=== PATIENT | male | born 1950 | race Caucasian/White ===

== ENCOUNTER → 2016-08-17 | Outpatient (CLI) | payer MEDICARE, BC | LOC: RAD 12:47 | PROVIDERS: ATTEND Physician Assistant | DX: R91.8 Other nonspecific abnormal finding of lung field (principal); R22.2 Localized swelling, mass and lump, trunk | CPT/HCPCS: 71260; 82565 ==

== ENCOUNTER → 2016-12-21 | Outpatient (CLI) | payer MEDICARE, BC | LOC: SP 11:20 | PROVIDERS: ATTEND Physician Assistant | DX: I10 Essential (primary) hypertension (principal); I73.9 Peripheral vascular disease, unspecified | CPT/HCPCS: 93306 ==

== ENCOUNTER → 2017-07-27 | Outpatient (CLI) | payer MEDICARE ==
--- NOTE | 2017-07-28 08:13 | XCELERA REPORT ---
[address] [address] Lower Extremity Arterial Evaluation Name: ELIJAH BRAN Age: 67 yrs Gender: Male : 1950 Patient Status: Outpatient Patient Location: Study Date: 07/27/2017 01:19 PM Procedure: A color flow and duplex scan of the lower extremity arteries was performed bilaterally with velocity and waveform anaylsis. Ankle brachial indicies performed. Reason For Study: PAIN Ordering Physician: VERONICA SÁNCHEZ Performed By: Anay Frederick Measurements and Calculations Right Left COUNSEL PSV 143.2 86.4 cm/sec Prox PFA PSV -66.0 -58.5 cm/sec Prox SFA PSV 89.9 75.4 cm/sec Mid SFA PSV -82.9 -75.4 cm/sec Dist SFA PSV -63.5 -79.0 cm/sec Prox Pop A PSV 85.6 62.5 cm/sec Dist HARLEY PSV 68.8 48.8 cm/sec Dist CONCRETE ANALYST PSV 54.1 36.1 cm/sec Sai Pedis PSV 87.7 53.9 cm/sec Right Side Arterial Evaluation Normal velocity and triphasic waveforms noted from the Common Femoral artery to the Popliteal artery. Biphasic with excellent amplitude, velocity, in the infrageniculate vessels. 0-19% stenosis at the infrageniculate level . Ankle Brachial index was not obtainable due to non compressibility. Left Side Arterial Evaluation Normal velocity and triphasic waveforms noted from the Common Femoral artery to the infrageniculate vessels. 0 % stenosis. Ankle Brachial index was not obtainable due to non compressibility. Interpretation Summary Mild hemodynamically significant lesions in the bilateral lower extremities, on duplex imaging, at rest. : VERONICA SÁNCHEZ > Veronica Sánchez
== END ==
LOC: SP 12:59
PROVIDERS: ATTEND Surgery
DX: M79.606 Pain in leg, unspecified (principal)
CPT/HCPCS: 93925

== ENCOUNTER 2017-08-21 13:19 | Emergency (ER) | payer MEDICARE, BC ==
[2017-08-21 13:29] VITALS: BP 141/81
--- NOTE | 2017-08-21 13:45 | ER Document Report ---
ED Medical Screen (RME) - General Chief Complaint: Skin Problem Stated Complaint: SKIN PROBLEM Time Seen by Provider: 08/21/17 13:34 Mode of Arrival: Wheelchair Information source: Patient Notes: 67-year-old male presenting with complaints of "itching really bad". Patient states he is unable to sleep at night secondary to this itching. Patient mentions that he has "sores on his private parts". Patient states he has not come into contact with anything he can think of aside from scabies several months ago. TRAVEL OUTSIDE OF THE [place] IN LAST 30 DAYS: No - Related Data Allergies/Adverse Reactions: ARIEL Inhibitors Allergy (Unknown, Verified 04/13/16 10:41) Unknown reaction celecoxib [From Celebrex] Allergy (Unknown, Verified 04/13/16 10:41) Unknown reaction Past Medical History - General Information source: Patient, [facility] Records - Social History Chew tobacco use (# tins/day): No Frequency of alcohol use: None Drug Abuse: None - Past Medical History Cardiac Medical History: Denies: Hx Coronary Artery Disease, Hx Heart Attack, Hx Hypertension Pulmonary Medical History: Denies: Hx Asthma, Hx Bronchitis, Hx COPD, Hx Pneumonia Neurological Medical History: Denies: Hx Cerebrovascular Accident, Hx Seizures Endocrine Medical History: Reports: Hx Diabetes Mellitus Type 2 Renal/ Medical History: Denies: Hx Peritoneal Dialysis Musculoskeltal Medical History: Reports Hx Arthritis - HANDS, KNEES, ANKLES, BACK Past Surgical History: Reports: Hx Cholecystectomy - Immunizations Hx Diphtheria, Pertussis, Tetanus Vaccination: Yes Review of Systems - Review of Systems Skin: See HPI, Other - itchy, penile sores Physical Exam - Vital signs Vitals: Temp Pulse Resp BP Pulse Ox 98.5 F 79 14 141/81 H 96 08/21/17 13:28 08/21/17 13:28 08/21/17 13:28 08/21/17 13:28 08/21/17 13:28 - General General appearance: Appears well In distress: None - Respiratory Respiratory status: No respiratory distress Chest status: Nontender - Cardiovascular Rhythm: Regular Heart sounds: Normal auscultation Murmur: No Course - Vital Signs Vital signs: Temp Pulse Resp BP Pulse Ox 98.5 F 79 14 141/81 H 96 08/21/17 13:28 08/21/17 13:28 08/21/17 13:28 08/21/17 13:28 08/21/17 13:28 Scribe Documentation - Scribe Written by Sneha:: Sneha Mark, 08/21/2017 1345 acting as scribe for :: Hanna
--- NOTE | 2017-08-21 14:28 | ER Document Report ---
ED Skin Rash/Insect Bite/Abscs - General Chief Complaint: Skin Problem Stated Complaint: SKIN PROBLEM Time Seen by Provider: 08/21/17 13:34 Mode of Arrival: Wheelchair Information source: Patient TRAVEL OUTSIDE OF THE [place] IN LAST 30 DAYS: No - HPI Patient complains to provider of: Skin rash/lesion Onset: Other - 1 month Onset/Duration: Constant Quality of pain: No pain Severity: Moderate Skin Character: Papules Skin Temperature: Warm Quality of rash: Itchy Identify cause: No Notes: Patient arrives with complaints of itching for the last month. States that he noticed a rash in his groin as well as his left axilla for the last month. Patient states that the rash seems to itch much more in the evenings. His has also began itching over the last few weeks. They do report an exposure to scabies. No fevers. No drainage. No nausea, vomiting, diarrhea. No chest pain or shortness of breath. He denies any new soaps, detergents, lotions, medications. No other complaints at this time. - Related Data Allergies/Adverse Reactions: ARIEL Inhibitors Allergy (Unknown, Verified 04/13/16 10:41) Unknown reaction celecoxib [From Celebrex] Allergy (Unknown, Verified 04/13/16 10:41) Unknown reaction Past Medical History - General Information source: Patient, [facility] Records - Social History Smoking Status: Never Smoker Chew tobacco use (# tins/day): No Frequency of alcohol use: None Drug Abuse: None Family History: Reviewed & Not Pertinent Patient has suicidal ideation: No Patient has homicidal ideation: No - Past Medical History Cardiac Medical History: Denies: Hx Coronary Artery Disease, Hx Heart Attack, Hx Hypertension Pulmonary Medical History: Denies: Hx Asthma, Hx Bronchitis, Hx COPD, Hx Pneumonia Neurological Medical History: Denies: Hx Cerebrovascular Accident, Hx Seizures Endocrine Medical History: Reports: Hx Diabetes Mellitus Type 2 Renal/ Medical History: Denies: Hx Peritoneal Dialysis Musculoskeltal Medical History: Reports Hx Arthritis - HANDS, KNEES, ANKLES, BACK Past Surgical History: Reports: Hx Cholecystectomy - Immunizations Hx Diphtheria, Pertussis, Tetanus Vaccination: Yes Review of Systems - Review of Systems -: Yes All other systems reviewed and negative Physical Exam - Vital signs Vitals: Temp Pulse Resp BP Pulse Ox 98.5 F 79 14 141/81 H 96 08/21/17 13:28 08/21/17 13:28 08/21/17 13:28 08/21/17 13:28 08/21/17 13:28 - Notes Notes: GENERAL: alert, cooperative, nontoxic, no distress. HEAD: normocephalic, atraumatic EYES: conjunctiva pink without discharge, no external redness or swelling. EARS: no external swelling, no external redness NOSE: atraumatic, no external swelling MOUTH/THROAT: mucous membranes moist and pink NECK: soft, supple, full range of motion, no meningismus. CHEST: no distress, lungs clear and equal throughout. No wheezing, rales, rhonchi. CARDIAC: regular rate and rhythm, no murmur, normal capillary refill, normal pulses. BACK: full range of motion, no CVA tenderness. EXTREMITIES: full range of motion of all extremities. No redness, no swelling. NEURO: alert and oriented 3, no focal deficits, full range of motion of all extremities. PYSCH: appropriate mood, affect. Patient is cooperative. SKIN: pink, warm, dry, papular lesions within the groin in the left axilla. No vesicles. No petechiae. No drainage. No surrounding erythema or tenderness. Course - Re-evaluation Re-evalutation: 08/21/17 14:25 Patient is nontoxic appearing with stable vitals. The patient has had a rash in his groin and left axilla for approximately 1 month. It itches much worse at nighttime. His is now itching as well. They have been exposed to a family member that had scabies. Rash is consistent with a scabies infestation. The patient will be discharged home with a prescription for Elimite and Atarax. Instructions to have the rest of the family treated. Clean all clothes and bed linens in hot water. Vacuum the carpet and furniture. Follow- up if itching continues in 1 week for possible retreatment. Follow-up sooner for increased pain, fever, redness, drainage, any further concerns. The patient's emergency department workup and current diagnosis were explained to the patient and or family. Follow-up instructions were provided. Medications if prescribed were discussed. Instructions for when to return to the emergency department including specific worrisome symptoms were discussed with the patient and/or family. The patient is noted to have elevated blood pressure during today's emergency department visit. The patient was informed of this finding. The patient was instructed that this may be related to pre-hypertension and requires further evaluation with a primary care provider. The patient has no hypertensive symptoms at this time. - Vital Signs Vital signs: Temp Pulse Resp BP Pulse Ox 98.5 F 79 14 141/81 H 96 08/21/17 13:28 08/21/17 13:28 08/21/17 13:28 08/21/17 13:28 08/21/17 13:28 Discharge - Discharge Clinical Impression: Scabies infestation Condition: Stable Disposition: HOME, SELF-CARE Instructions: Scabies ([facility]) Additional Instructions: His medications as prescribed. All family members should be treated. Wash all clothes and bed linens in hot water. Vacuum all furniture and carpet. Follow- up if not better in 1 week, sooner for increased symptoms, high fevers, redness , drainage, any further concerns. Your blood pressure was elevated during today's visit. Have this rechecked with your doctor. Prescriptions: Hydroxyzine HCl [Atarax 25 mg Tablet] 1 - 2 tab PO QID #25 tablet Permethrin [Elimite] 60 gm TP ONCE #120 cream.gm. Forms: Elevated Blood Pressure, Smoking Cessation Education
== END 2017-08-21 14:57 | disposition home or self-care (01) ==
LOC: ER 13:19
DX: B86 Scabies (principal); R21 Rash and other nonspecific skin eruption
CPT/HCPCS: 99282

== ENCOUNTER 2018-07-21 16:39 | Inpatient (IN) | payer MEDICARE, BC ==
[2018-07-21 17:01] LABS: ABSOLUTE EOSINOPHILS # (AUTO) 0.2 10^3/uL (0.0-0.6); ABSOLUTE LYMPHOCYTES (AUTO) 2.1 10^3/uL (0.5-4.7); ABSOLUTE MONOCYTES (AUTO) 0.5 10^3/uL (0.1-1.4); ABSOLUTE NEUT (AUTO) 5.1 10^3/uL (1.7-8.2); BASOPHILS % (AUTO) 0.6 % (0-2); EOSINOPHILS % (AUTO) 2.4 % (0-6); HEMATOCRIT 45.3 % (37.9-51.0); HEMOGLOBIN 15.8 g/dL (13.5-17.0); LYMPHOCYTES % (AUTO) 26.4 % (13-45); MEAN CORPUSCULAR HEMOGLOBIN 31.1 pg (27.0-33.4); MEAN CORPUSCULAR HGB CONC 34.7 g/dL (32.0-36.0); MEAN CORPUSCULAR VOLUME 90 fl (80-97); MONOCYTES % (AUTO) 6.7 % (3-13); PLATELET COUNT 286 10^3/uL (150-450); RED BLOOD COUNT 5.07 10^6/uL (4.35-5.55); RED CELL DISTRIBUTION WIDTH 12.7 % (11.5-14.0); SEGMENTED NEUTROPHILS % (AUTO) 63.9 % (42-78); TOTAL CELLS COUNTED % (AUTO) 100 %
--- NOTE | 2018-07-21 17:09 | RADIOLOGY REPORT (SQ) ---
EXAM DESCRIPTION: CHEST SINGLE VIEW COMPLETED DATE/TIME: 07/21/2018 5:00 pm REASON FOR STUDY: cva COMPARISON: 07/27/2016 EXAM PARAMETERS: NUMBER OF VIEWS: One view. TECHNIQUE: Single frontal radiographic view of the chest acquired. RADIATION DOSE: NA LIMITATIONS: None. FINDINGS: LUNGS AND PLEURA: No opacities, masses or pneumothorax. No pleural effusion. MEDIASTINUM AND HILAR STRUCTURES: No masses. Contour normal. HEART AND VASCULAR STRUCTURES: Heart normal in size. Normal vasculature. BONES: No acute findings. HARDWARE: None in the chest. OTHER: No other significant finding. IMPRESSION: NO ACUTE RADIOGRAPHIC FINDING IN THE CHEST. TECHNICAL DOCUMENTATION: JOB ID: [id number] [employer]- All Rights Reserved Reading location - IP/workstation name: [email or web address]
[2018-07-21 17:11] LABS: INTERNATIONAL RATION (INR) 1.01; PROTHROMBIN TIME 13.8 SEC (11.4-15.4)
[2018-07-21 17:12] LABS: PARTIAL THROMBOPLASTIN TIME 33.7 SEC (23.5-35.8)
[2018-07-21 17:29] LABS: ALANINE AMINOTRANSFERASE 17 U/L (21-72); ALKALINE PHOSPHATASE 65 U/L (38-126); ANION GAP 10 (5-19); ASPARTATE AMINO TRANSFERASE 21 U/L (17-59); BILIRUBIN,DIRECT 0.4 mg/dL (0.0-0.4); BILIRUBIN,TOTAL 0.6 mg/dL (0.2-1.3); BLOOD UREA NITROGEN 23 mg/dL (7-20); CALCIUM 9.7 mg/dL (8.4-10.2); CARBON DIOXIDE 27 mmol/L (22-30); CHLORIDE 106 mmol/L (98-107); CREATINE KINASE 35 U/L (55-170); GLUCOSE 70 mg/dL (75-110); POTASSIUM 4.2 mmol/L (3.6-5.0); TOTAL PROTEIN 7.3 g/dL (6.3-8.2)
[2018-07-21 17:37] LABS: CREATINE KINASE MB 0.35 ng/mL (<4.55)
[2018-07-21 17:38] LABS: TROPONIN I < 0.012 ng/mL
--- NOTE | 2018-07-21 17:55 | ER Document Report ---
ED General - General Chief Complaint: S/S of Possible Stroke Stated Complaint: SHORTNESS OF BREATH Time Seen by Provider: 07/21/18 16:49 Mode of Arrival: Wheelchair Information source: Patient, Relative Notes: 68-year-old male brought to the emergency department for left MCA stroke. Patient had an outpatient MRI scheduled by his primary care physician Dr. Hernandez for confusion and weakness. The MRI was scheduled a week ago. Patient went in and had the MRI done and radiology noticed an acute left MCA stroke. Patient was brought to the emergency department for further evaluation. Patient's and family members are in the room. They state that he has been confused for the last year. Patient is unable to recollect what month or year it is. Family denies any numbness, tingling, focal weakness, vision changes, speech changes. Patient has no complaints in the room. Patient denies a history of prior stroke. TRAVEL OUTSIDE OF THE [place] IN LAST 30 DAYS: No - HPI Onset: Other - 1 year Onset/Duration: Constant Quality of pain: No pain Severity: None Pain Level: Denies Associated symptoms: None Exacerbated by: Denies Relieved by: Denies Similar symptoms previously: Yes Recently seen / treated by doctor: Yes - Related Data Allergies/Adverse Reactions: ARIEL Inhibitors Allergy (Unknown, Verified 04/13/16 10:41) Unknown reaction celecoxib [From Celebrex] Allergy (Unknown, Verified 04/13/16 10:41) Unknown reaction Past Medical History - General Information source: Patient - Social History Smoking Status: Never Smoker Chew tobacco use (# tins/day): No Frequency of alcohol use: None Drug Abuse: None Family History: Reviewed & Not Pertinent Patient has suicidal ideation: No Patient has homicidal ideation: No - Past Medical History Cardiac Medical History: Denies: Hx Coronary Artery Disease, Hx Heart Attack, Hx Hypertension Pulmonary Medical History: Denies: Hx Asthma, Hx Bronchitis, Hx COPD, Hx Pneumonia Neurological Medical History: Denies: Hx Cerebrovascular Accident, Hx Seizures Endocrine Medical History: Reports: Hx Diabetes Mellitus Type 2 Renal/ Medical History: Denies: Hx Peritoneal Dialysis Musculoskeletal Medical History: Reports Hx Arthritis - HANDS, KNEES, ANKLES, BACK Past Surgical History: Reports: Hx Cholecystectomy - Immunizations Hx Diphtheria, Pertussis, Tetanus Vaccination: Yes Review of Systems - Review of Systems Constitutional: No symptoms reported EENT: No symptoms reported Cardiovascular: No symptoms reported Respiratory: No symptoms reported Gastrointestinal: No symptoms reported Genitourinary: No symptoms reported Musculoskeletal: No symptoms reported Skin: No symptoms reported Hematologic/Lymphatic: No symptoms reported Neurological/Psychological: Confusion, Weakness -: Yes All other systems reviewed and negative Physical Exam - Vital signs Vitals: Pulse Resp BP Pulse Ox 77 18 163/77 H 95 07/21/18 16:40 07/21/18 16:40 07/21/18 16:40 07/21/18 16:40 - Notes Notes: PHYSICAL EXAMINATION: GENERAL: Well-appearing, well-nourished and in no acute distress. HEAD: Atraumatic, normocephalic. EYES: Pupils equal round and reactive to light, extraocular movements intact, sclera anicteric, conjunctiva are normal. ENT: Nares patent, oropharynx clear without exudates. Moist mucous membranes. NECK: Normal range of motion, supple without lymphadenopathy LUNGS: Breath sounds clear to auscultation bilaterally and equal. No wheezes rales or rhonchi. HEART: Regular rate and rhythm without murmurs ABDOMEN: Soft, nontender, nondistended abdomen. No guarding, no rebound. No masses appreciated. Musculoskeletal: Normal range of motion, no pitting or edema. No cyanosis. NEUROLOGICAL: Cranial nerves grossly intact. Normal speech. Normal sensory, motor exams. NIH 1 PSYCH: Normal mood, normal affect. SKIN: Warm, Dry, normal turgor, no rashes or lesions noted. Course - Re-evaluation Re-evalutation: 07/21/18 17:56 EKG: Ventricular rate 76, [place] interval 172, QRS duration 102, QTc 446, sinus rhythm, left ventricular hypertrophy. No ST segment elevation. 07/21/18 18:02 NIH stroke score is a 1. Patient is not able to recollect the month or year. No focal neurologic deficits are appreciated. As the patient symptoms have been present for the last year, he is not a TPA candidate. I contacted the hospitalist for admission. is agreeable with admitting the luisa ent. Patient is currently stable. - Vital Signs Vital signs: Temp Pulse Resp BP Pulse Ox 77 18 163/77 H 95 07/21/18 16:40 07/21/18 16:40 07/21/18 16:40 07/21/18 16:40 - Laboratory Result Diagrams: 07/21/18 16:50 07/21/18 16:50 Laboratory results interpreted by me: 07/21/18 16:50 BUN 23 H Glucose 70 L ALT 17 L Creatine Kinase 35 L Discharge - Discharge Clinical Impression: CVA (cerebral vascular accident) Qualifiers: CVA mechanism: unspecified Qualified Code(s): I63.9 - Cerebral infarction, unspecified Condition: Good Disposition: ADMITTED OBSERVATION Admitting Provider: Hospitalist Unit Admitted: IMCU Referrals: MARCUS HERNANDEZ I, [Primary Care Provider] - Follow up as needed
--- NOTE | 2018-07-21 18:18 | EKG REPORT ---
SEVERITY:- ABNORMAL ECG - SINUS RHYTHM LEFT VENTRICULAR HYPERTROPHY TALL R WAVE IN V2, CONSIDER RVH OR PMI : Confirmed by: Jose An MD 21-Jul-2018 18:18:05
[2018-07-21] MEDS ORDERED: ONDANSETRON HCL INJ/PF 4 MG/2 ML SDV IV PRN (18:25)
[2018-07-21] MEDS ORDERED: DEXTROSE 50%-WATER 25 GM/50 ML DISP.SYRIN IV PRN ×2 (18:25)
[2018-07-21] MEDS ORDERED: DEXTROSE 40% GEL 15 GM TUBE PO PRN ×2 (18:25)
[2018-07-21] MEDS ORDERED: GLUCAGON,HUMAN RECOMB 1 MG INJ SUBCUT PRN (18:25)
--- NOTE | 2018-07-21 18:50 | PDOC H&P ---
History of Present Illness Admission Date/PCP: 07/21/18 18:12 Allyson MILLER History of Present Illness: ELIJAH BRAN is a very pleasant but unfortunate 68 year old male past medical history of peripheral arterial disease, morbid obesity, diabetes mellitus, hypertension, history of prostate CA and generalized osteoarthritis referred from his primary care physician office for stroke. It is not able to give any meaningful history brief history is obtained from ER attending note and from his . This morning patient visited his primary care physician office of Dr. Hernandez for confusion and slurred speech. He has MRI and it was reported as acute ischemic stroke in the territory of left MCA. Of note patient has had confusion and weakness for the last 1 year. Per his who is in the room report is that patient is not able to walk and he only briefly stand to transfer him to scooter. He is also incontinent of stool and urine. Further detailed history and review of systems unobtainable. Past Medical History Cardiac Medical History: Reports: Hypertension, Peripheral Vascular Disease Denies: Coronary Artery Disease, Myocardial Infarction Pulmonary Medical History: Denies: Asthma, Bronchitis, Chronic Obstructive Pulmonary Disease (COPD), Pneumonia Neurological Medical History: Denies: Seizures Endocrine Medical History: Reports: Diabetes Mellitus Type 2 Musculoskeltal Medical History: Reports: Arthritis - HANDS, KNEES, ANKLES, BACK Hematology: Denies: Anemia Past Surgical History Past Surgical History: Reports: Cholecystectomy Social History Smoking Status: Never Smoker - Advance Directive Resuscitation Status: Full Code Family History Family History: Reviewed & Not Pertinent, CVA Parental Family History Reviewed: Yes Children Family History Reviewed: Yes Sibling(s) Family History Reviewed.: Yes Medication/Allergy Allergies/Adverse Reactions: ARIEL Inhibitors Allergy (Unknown, Verified 04/13/16 10:41) Unknown reaction celecoxib [From Celebrex] Allergy (Unknown, Verified 04/13/16 10:41) Unknown reaction Review of Systems ROS unobtainable: Due to mental status Physical Exam Vital Signs: Temp Pulse Resp BP Pulse Ox 77 28 H 154/86 H 95 07/21/18 16:40 07/21/18 16:41 07/21/18 17:01 07/21/18 17:01 General appearance: PRESENT: no acute distress Head exam: PRESENT: atraumatic Eye exam: PRESENT: conjunctiva pink Neck exam: ABSENT: carotid bruit, JVD, lymphadenopathy, thyromegaly Respiratory exam: PRESENT: clear to auscultation vivek. ABSENT: rales, rhonchi, wheezes Cardiovascular exam: PRESENT: RRR. ABSENT: diastolic murmur, rubs, systolic murmur GI/Abdominal exam: PRESENT: normal bowel sounds, soft. ABSENT: distended, guarding, mass, organolmegaly, rebound, tenderness Neurological exam: PRESENT: alert, awake Results Laboratory Results: 07/21/18 16:50 07/21/18 16:50 07/21/18 07/21/18 16:50 16:50 WBC 8.0 RBC 5.07 Hgb 15.8 Hct 45.3 MCV 90 MCH 31.1 MCHC 34.7 RDW 12.7 Plt Count 286 Seg Neutrophils % 63.9 Lymphocytes % 26.4 Monocytes % 6.7 Eosinophils % 2.4 Basophils % 0.6 Absolute Neutrophils 5.1 Absolute Lymphocytes 2.1 Absolute Monocytes 0.5 Absolute Eosinophils 0.2 Absolute Basophils 0.0 Sodium 143.0 Potassium 4.2 Chloride 106 Carbon Dioxide 27 Anion Gap 10 BUN 23 H Creatinine 0.97 Est GFR ( Amer) > 60 Est GFR (Non-Af Amer) > 60 Glucose 70 L Calcium 9.7 Total Bilirubin 0.6 AST 21 ALT 17 L Alkaline Phosphatase 65 Total Protein 7.3 Albumin 4.0 07/21/18 07/21/18 16:50 16:50 Creatine Kinase 35 L CK-MB (CK-2) 0.35 Troponin I < 0.012 Impressions: Chest X-Ray 07/21/18 16:49 IMPRESSION: NO ACUTE RADIOGRAPHIC FINDING IN THE CHEST. Assessment & Plan - Diagnosis (1) Acute ischemic left MCA stroke Is this a current diagnosis for this admission?: Yes Plan: Patient is out of the therapeutic window and he is not a candidate for TPA administration. Patient has been started on high-dose aspirin and high intensity statin namely Lipitor 80 mg p.o. nightly Physical and occupational therapy consulted Speech evaluation is consulted. (2) Type 2 diabetes mellitus Is this a current diagnosis for this admission?: Yes Plan: We will put him on sliding scale. Check his A1c level (3) Hyperlipidemia Qualifiers: Hyperlipidemia type: unspecified Qualified Code(s): E78.5 - Hyperlipidemia, unspecified Is this a current diagnosis for this admission?: Yes Plan: Continue statin (4) Hypertension Is this a current diagnosis for this admission?: Yes Plan: Monitor his blood pressure and allow permissive hypertension (5) Morbid obesity with BMI of 45.0-49.9, adult Is this a current diagnosis for this admission?: Yes Plan: I will advise lifestyle modification. (6) Peripheral arterial disease Is this a current diagnosis for this admission?: Yes Plan: Outpatient follow-up with his primary care physician. (7) History of prostate cancer Is this a current diagnosis for this admission?: Yes Plan: Follow-up with his primary oncologist.
[2018-07-21 19:13] LABS: APPEARANCE,URINE CLOUDY; BILIRUBIN,URINE NEGATIVE (NEGATIVE); GLUCOSE, URINE NEGATIVE (NEGATIVE); KETONES,URINE NEGATIVE (NEGATIVE); LEUKOCYTE ESTERASE,URINE NEGATIVE (NEGATIVE); NITRITE,URINE NEGATIVE (NEGATIVE); PROTEIN,URINE 30 mg/dL (NEGATIVE); URINE SPECIFIC GRAVITY 1.027
[2018-07-21 19:16] LABS: COLOR,URINE YELLOW
[2018-07-21] MEDS: ENOXAPARIN SODIUM INJ 40 MG/0.4 ML DISP.SYRIN SUBCUT SCH (22:37)
[2018-07-21] MEDS: ATORVASTATIN CALCIUM 80 MG TABLET PO SCH (22:37)
[2018-07-22 05:02] LABS: ABSOLUTE EOSINOPHILS # (AUTO) 0.2 10^3/uL (0.0-0.6); ABSOLUTE MONOCYTES (AUTO) 0.4 10^3/uL (0.1-1.4); ABSOLUTE NEUT (AUTO) 3.5 10^3/uL (1.7-8.2); BASOPHILS % (AUTO) 0.7 % (0-2); EOSINOPHILS % (AUTO) 2.9 % (0-6); HEMATOCRIT 41.7 % (37.9-51.0); HEMOGLOBIN 14.2 g/dL (13.5-17.0); LYMPHOCYTES % (AUTO) 32.4 % (13-45); MEAN CORPUSCULAR HEMOGLOBIN 30.3 pg (27.0-33.4); MEAN CORPUSCULAR HGB CONC 34.2 g/dL (32.0-36.0); MEAN CORPUSCULAR VOLUME 89 fl (80-97); MONOCYTES % (AUTO) 7.1 % (3-13); PLATELET COUNT 216 10^3/uL (150-450); RED CELL DISTRIBUTION WIDTH 12.8 % (11.5-14.0); SEGMENTED NEUTROPHILS % (AUTO) 56.9 % (42-78); TOTAL CELLS COUNTED % (AUTO) 100 %; WHITE BLOOD COUNT 6.1 10^3/uL (4.0-10.5)
[2018-07-22 05:20] LABS: ALANINE AMINOTRANSFERASE 16 U/L (21-72); ALBUMIN 3.5 g/dL (3.5-5.0); ALKALINE PHOSPHATASE 62 U/L (38-126); ANION GAP 8 (5-19); ASPARTATE AMINO TRANSFERASE 17 U/L (17-59); BILIRUBIN,DIRECT 0.3 mg/dL (0.0-0.4); BILIRUBIN,TOTAL 0.6 mg/dL (0.2-1.3); BLOOD UREA NITROGEN 20 mg/dL (7-20); CALCIUM 9.4 mg/dL (8.4-10.2); CARBON DIOXIDE 27 mmol/L (22-30); CHLORIDE 106 mmol/L (98-107); CHOLESTEROL 125.24 mg/dL (0-200); GLUCOSE 147 mg/dL (75-110); POTASSIUM 3.6 mmol/L (3.6-5.0); SODIUM 141.2 mmol/L (137-145); TOTAL PROTEIN 6.3 g/dL (6.3-8.2); TRIGLYCERIDES 86 mg/dL (<150)
[2018-07-22 05:30] LABS: DIRECT LDL 82 mg/dL (<100)
[2018-07-22] MEDS: LANSOPRAZOLE 30 MG TAB.RAP.DR PO SCH ×2 (06:20→19:16)
--- NOTE | 2018-07-22 08:16 | RADIOLOGY REPORT (SQ) ---
EXAM DESCRIPTION: CAROTID DOPPLER COMPLETED DATE/TIME: 07/21/2018 8:52 pm REASON FOR STUDY: Acute ischemic stroke R19.7 DIARRHEA, UNSPECIFIED E08.21 DIABETES DUE TO UNDERLY ING CONDITION W DIABETIC NEPHR E78.49 OTHER HYPERLIPIDEMIA COMPARISON: MRI brain 07/21/2018 TECHNIQUE: Grayscale ultrasound, Doppler velocity and spectra, and color Doppler images acquired of the extra-cranial carotid and vertebral arteries. Images stored on PACS. LIMITATIONS: None. FINDINGS: RIGHT CAROTID CCA Velocities: Within normal limits. 0.72 m/sec ICA Velocities Peak systolic 0.54 m/s. End diastolic 0.08 m/s. Proximal ICA/CCA peak systolic ratio normal. Spectra normal. No significant plaque. LEFT CAROTID CCA Velocities: Within normal limits. 0.78 m/sec ICA Velocities Peak systolic 0.50 m/s. End diastolic 0.08 m/s. Proximal ICA/CCA peak systolic ratio normal. Spectra normal. No significant plaque. VERTEBRAL ARTERIES: Antegrade flow. Normal waveforms. SUBCLAVIAN ARTERIES: Not evaluated OTHER: No other significant finding. IMPRESSION: NO HEMODYNAMICALLY SIGNIFICANT STENOSIS. COMMENT: Quality ID #[id number]: Velocity criteria are extrapolated from the diameter data as defined by t he Society of Radiologists in Ultrasound Consensus Conference. Radiology 2003: 229; 340-346. TECHNICAL DOCUMENTATION: JOB ID: [id number] [employer]- All Rights Reserved Reading location - IP/workstation name: [email or web address]
--- NOTE | 2018-07-22 09:44 | RADIOLOGY REPORT (SQ) ---
EXAM DESCRIPTION: CT CHEST WITHOUT COMPLETED DATE/TIME: 07/22/2018 8:56 am REASON FOR STUDY: Pulmonary nodule R19.7 DIARRHEA, UNSPECIFIED E08.21 DIABETES DUE TO UNDERLYING C ONDITION W DIABETIC NEPHR E78.49 OTHER HYPERLIPIDEMIA COMPARISON: CT abdomen pelvis 03/26/2016 CT chest 08/17/2016 TECHNIQUE: CT scan performed of the chest without intravenous contrast. Images reviewed with lung, soft tissue and bone windows. Reconstructed coronal and sagittal MPR images reviewed. All images st ored on PACS. All CT scanners at this facility use dose modulation, iterative reconstruction, and/or weight based d osing when appropriate to reduce radiation dose to as low as reasonably achievable (ALARA). [facility]: Dose Right [facility]: CareDose [facility]: Dose Right [facility]: Teradose 4D [facility]: Smart Technologies RADIATION DOSE: CT Rad equipment meets quality standard of care and radiation dose reduction techniq ues were employed. CTDIvol: 19.4 mGy. DLP: 727 mGy-cm. mGy. LIMITATIONS: No technical limitations. FINDINGS: LUNGS AND PLEURA: A 1.7 cm nodule is present in the left lateral costophrenic sulcus. Thi s is smooth, round, without calcification. This nodule has shown minimal growth since 2016, when it measured about 1.5 cm in size. Outpatient follow-up PET-CT should be considered, patient does have a history of prostate cancer in the past. Remainder of the lungs and pleura are otherwise unremarkable. No acute infiltrates. No pleural effu nacho. No pneumothorax. HILAR AND MEDIASTINAL STRUCTURES: No identified masses or abnormal nodes. No obvious aneurysm. HEART AND VASCULAR STRUCTURES: No aneurysm. No pericardial effusion. UPPER ABDOMEN: No significant findings. Limited exam. THYROID AND OTHER SOFT TISSUES: No masses. No adenopathy. BONES: No significant finding. HARDWARE: None in the chest. OTHER: No other significant findings. IMPRESSION: 1.7 cm nodule left lateral costophrenic sulcus. Patient does have a history prostate ma lignancy in the past. Consider outpatient follow-up PET-CT for further evaluation TECHNICAL DOCUMENTATION: JOB ID: [id number] Quality ID # [id number]: Final reports with documentation of one or more dose reduction techniques (e.g., Au tomated exposure control, adjustment of the mA and/or kV according to patient size, use of iterative reconstruction technique) 2010 [employer]- All Rights Reserved Reading location - IP/workstation name: [email or web address]
[2018-07-22] MEDS: ENOXAPARIN SODIUM INJ 40 MG/0.4 ML DISP.SYRIN SUBCUT SCH (09:48)
[2018-07-22] MEDS: ASPIRIN 325 MG TABLET PO SCH (09:48)
--- NOTE | 2018-07-22 11:36 | RADIOLOGY REPORT (SQ) ---
EXAM DESCRIPTION: MRI LUMBAR SPINE COMBO COMPLETED DATE/TIME: 07/22/2018 11:12 am REASON FOR STUDY: bilateral leg weakness R19.7 DIARRHEA, UNSPECIFIED E08.21 DIABETES DUE TO UNDERL PAO CONDITION W DIABETIC NEPHR E78.49 OTHER HYPERLIPIDEMIA COMPARISON: CT abdomen pelvis 03/26/2016 TECHNIQUE: Sagittal and Axial imaging includes T1, T1 post gadolinium, T2, STIR and gradient echo se quences. Coronal T2/HASTE imaging. CONTRAST TYPE AND DOSE: 20 mL Dotarem. RENAL FUNCTION: GFR > 60. LIMITATIONS: None. FINDINGS: VISUALIZED UPPER ABDOMEN: Limited evaluation. No acute or suspicious findings suggested. SEGMENTATION: No transitional anatomy. The lowest well-developed disc space is labeled L5-S1. ALIGNMENT: Grade 1 anterolisthesis of L4 over L5 related to advanced bilateral facet arthropathy VERTEBRAE: Intact. No fractures. BONE MARROW: Normal. No marrow replacement or reactive changes. DISC SIGNAL: Decreased T2 weighted intervertebral disc signal without disc space loss of height at L4 -5 and L5-S1 POSTERIOR ELEMENTS: Generally intact. No pars defect evident. HARDWARE: None in the spine. CORD AND CONUS: Normal in size and signal intensity. Conus at the T12-L1 level. SOFT TISSUES: No aortic aneurysm seen. No bulky retroperitoneal adenopathy or mass. No paraspinal mas s or fluid. T11-12: At the upper edge of the field of view. Mild bilateral facet hypertrophy. No central or fo raminal encroachment. T12-L1: Mild bilateral facet arthropathy. No central or foraminal encroachment. L1-L2: Mild bilateral facet arthropathy. No central or foraminal stenosis L2-L3: Mild diffuse posterior disc bulging and moderate bilateral facet and ligament hypertrophy caus e borderline central canal narrowing and mild bilateral foraminal narrowing without exiting L2 nerve root impingement. L3-L4: Broad diffuse posterior disc bulge and moderate bilateral facet and ligament hypertrophy cause mild central canal narrowing and mild bilateral inferior foraminal narrowing without exit L3 nerve r oot impingement. L4-L5: High-grade central canal stenosis results from grade 1 anterolisthesis of L4 over L5, and bulk y bilateral facet and ligament hypertrophy. Effacement of the CSF around the lumbar nerve roots best shown on axial T2 image 22. Flattening of the thecal sac at the takeoff of the bilateral proximal L 5 nerve roots in the lateral recesses on axial T2 image 23. Elsewhere at L4-5, there is moderate right and high-grade left foraminal narrowing from facet and dis c bulge. Partial effacement of fat around the exiting left L4 nerve root. L5-S1: Mild posterior disc bulging, bulky bilateral facet hypertrophy. No central stenosis. Moderat e right, high-grade left foraminal narrowing with partial effacement of the fat around the exiting le ft L5 nerve root. SACRUM: Visualized upper sacrum intact. ENHANCEMENT: No abnormal conus or lumbar nerve root enhancement. Mild synovial enhancement bilateral facet joints at L4-5, mild diffuse contrast enhancement along the posterior L4-5 disc margin. OTHER: No other significant findings. IMPRESSION: High-grade central canal stenosis at L4-5 TECHNICAL DOCUMENTATION: JOB ID: [id number] [employer]- All Rights Reserved Reading location - IP/workstation name: [email or web address]
--- NOTE | 2018-07-22 11:49 | PDOC PROGRESS REPORT ---
Subjective Subjective:: Mr. Singh is a 68 years old male patient who was admitted yesterday after he was found to have acute left MCA ischemic stroke. Patient has past medical history of hypertension hyperlipidemia, diabetes mellitus, peripheral arterial disease morbid obesity and history of prostate CA status post radiation treatment. Patient has also underlying ongoing bilateral leg weakness and is not able to walk and associated incontinence of bowel and urine. He has bilateral carotid Doppler reported as no hemodynamically significant stenosis. His CT chest without contrast reported as 1.7 cm left lateral costophrenic s ulcus nodule. Since patient has history of prostate CA further evaluation with outpatient follow-up PET/CT recommended by radiologist Dr. Infante. This morning I seen patient resting in bed he is awake alert and reports feeling better. MRI of the lumbar spine has been done and the results pending. Reason For Visit: ACUTE ISCHEMIC STROKE Physical Exam Vital Signs: Temp Pulse Resp BP Pulse Ox 97.9 F 61 19 149/61 H 98 07/22/18 08:03 07/22/18 08:03 07/22/18 08:03 07/22/18 08:03 07/22/18 08:03 Intake & Output 07/21/18 07/22/18 07/23/18 06:59 06:59 06:59 Intake Total 0 Output Total 0 Balance 0 Weight 139.4 kg General appearance: PRESENT: no acute distress Head exam: PRESENT: atraumatic Eye exam: PRESENT: conjunctiva pink Mouth exam: PRESENT: moist Neck exam: ABSENT: carotid bruit, JVD, lymphadenopathy, thyromegaly Respiratory exam: PRESENT: clear to auscultation vivek. ABSENT: rales, rhonchi, wheezes Cardiovascular exam: PRESENT: RRR. ABSENT: diastolic murmur, rubs, systolic murmur GI/Abdominal exam: PRESENT: other - Morbidly obese Neurological exam: PRESENT: alert, awake Results Laboratory Results: 07/22/18 04:49 07/22/18 04:49 07/21/18 07/21/18 07/21/18 16:50 16:50 18:40 WBC 8.0 RBC 5.07 Hgb 15.8 Hct 45.3 MCV 90 MCH 31.1 MCHC 34.7 RDW 12.7 Plt Count 286 Seg Neutrophils % 63.9 Lymphocytes % 26.4 Monocytes % 6.7 Eosinophils % 2.4 Basophils % 0.6 Absolute Neutrophils 5.1 Absolute Lymphocytes 2.1 Absolute Monocytes 0.5 Absolute Eosinophils 0.2 Absolute Basophils 0.0 Sodium 143.0 Potassium 4.2 Chloride 106 Carbon Dioxide 27 Anion Gap 10 BUN 23 H Creatinine 0.97 Est GFR ( Amer) > 60 Est GFR (Non-Af Amer) > 60 Glucose 70 L Calcium 9.7 Total Bilirubin 0.6 AST 21 ALT 17 L Alkaline Phosphatase 65 Total Protein 7.3 Albumin 4.0 Triglycerides Cholesterol LDL Cholesterol Direct VLDL Cholesterol HDL Cholesterol Urine Color YELLOW Urine Appearance CLOUDY Urine pH 5.0 Ur Specific Cuervo 1.027 Urine Protein 30 H Urine Glucose (UA) NEGATIVE Urine Ketones NEGATIVE Urine Blood NEGATIVE Urine Nitrite NEGATIVE Ur Leukocyte Esterase NEGATIVE Urine WBC (Auto) 1 Urine RBC (Auto) 7 07/22/18 07/22/18 04:49 04:49 WBC 6.1 RBC 4.70 Hgb 14.2 Hct 41.7 MCV 89 MCH 30.3 MCHC 34.2 RDW 12.8 Plt Count 216 Seg Neutrophils % 56.9 Lymphocytes % 32.4 Monocytes % 7.1 Eosinophils % 2.9 Basophils % 0.7 Absolute Neutrophils 3.5 Absolute Lymphocytes 2.0 Absolute Monocytes 0.4 Absolute Eosinophils 0.2 Absolute Basophils 0.0 Sodium 141.2 Potassium 3.6 Chloride 106 Carbon Dioxide 27 Anion Gap 8 BUN 20 Creatinine 0.74 Est GFR ( Amer) > 60 Est GFR (Non-Af Amer) > 60 Glucose 147 H Calcium 9.4 Total Bilirubin 0.6 AST 17 ALT 16 L Alkaline Phosphatase 62 Total Protein 6.3 Albumin 3.5 Triglycerides 86 Cholesterol 125.24 LDL Cholesterol Direct 82 VLDL Cholesterol 17.0 HDL Cholesterol 30 L Urine Color Urine Appearance Urine pH Ur Specific Cuervo Urine Protein Urine Glucose (UA) Urine Ketones Urine Blood Urine Nitrite Ur Leukocyte Esterase Urine WBC (Auto) Urine RBC (Auto) 07/21/18 07/21/18 16:50 16:50 Creatine Kinase 35 L CK-MB (CK-2) 0.35 Troponin I < 0.012 Impressions: Chest X-Ray 07/21/18 16:49 IMPRESSION: NO ACUTE RADIOGRAPHIC FINDING IN THE CHEST. Carotid Doppler Study 07/21/18 18:28 IMPRESSION: NO HEMODYNAMICALLY SIGNIFICANT STENOSIS. Chest CT 07/22/18 00:00 IMPRESSION: 1.7 cm nodule left lateral costophrenic sulcus. Patient does have a history prostate malignancy in the past. Consider outpatient follow-up PET-CT for further evaluation Lumbar Spine MRI 07/22/18 00:00 IMPRESSION: High-grade central canal stenosis at L4-5 Assessment & Plan - Diagnosis (1) Acute ischemic left MCA stroke Is this a current diagnosis for this admission?: Yes Plan: Patient is out of the therapeutic window and he is not a candidate for TPA administration. Patient has been started on high-dose aspirin and high intensity statin namely Lipitor 80 mg p.o. nightly Physical and occupational therapy consulted Speech evaluation is consulted. (2) Type 2 diabetes mellitus Is this a current diagnosis for this admission?: Yes Plan: His diabetes is well controlled with hemoglobin A1c of 6.6. (3) Hyperlipidemia Qualifiers: Hyperlipidemia type: unspecified Qualified Code(s): E78.5 - Hyperlipidemia, unspecified Is this a current diagnosis for this admission?: Yes Plan: Continue statin (4) Hypertension Is this a current diagnosis for this admission?: Yes Plan: Monitor his blood pressure and allow permissive hypertension (5) Morbid obesity with BMI of 45.0-49.9, adult Is this a current diagnosis for this admission?: Yes Plan: I will advise lifestyle modification. (6) Peripheral arterial disease Is this a current diagnosis for this admission?: Yes Plan: Outpatient follow-up with his primary care physician. (7) History of prostate cancer Is this a current diagnosis for this admission?: Yes Plan: Follow-up with his primary oncologist. (8) Bilateral leg weakness Is this a current diagnosis for this admission?: Yes Plan: Patient has ongoing both lower extremity weakness which has been going for more than a year and has also associated urinary and bowel incontinence. MRI of the lumbar spine requested to rule out any underlying epidural mass or lesion.
[2018-07-22] MEDS: ATORVASTATIN CALCIUM 80 MG TABLET PO SCH (22:36)
[2018-07-22] MEDS: INSULIN LISPRO 100 UNIT/ML 3 ML VIAL SUBCUT PRN (22:36)
[2018-07-22] MEDS: GABAPENTIN 300 MG CAPSULE PO SCH (22:36)
[2018-07-22] MEDS: HUM INSULIN NPH/REG INSULIN HM 100 UNIT/1 ML 3 ML SUBCUT SCH (22:36)
[2018-07-23] MEDS: LANSOPRAZOLE 30 MG TAB.RAP.DR PO SCH ×2 (05:46→19:05)
[2018-07-23] MEDS ORDERED: (PENDING PHARMACY ID) (Vitamin B Complex [Vitamin B Complex] 1 TAB) PO SCH (10:00)
[2018-07-23] MEDS: CITALOPRAM HYDROBROMIDE 20 MG TABLET PO SCH (10:19)
[2018-07-23] MEDS: CHOLECALCIFEROL (D3) 1,000 UNIT TABLET PO SCH (10:19)
[2018-07-23] MEDS: ASPIRIN 325 MG TABLET PO SCH (10:19)
[2018-07-23] MEDS: HUM INSULIN NPH/REG INSULIN HM 100 UNIT/1 ML 3 ML SUBCUT SCH ×2 (10:20→22:08)
[2018-07-23] MEDS: ENOXAPARIN SODIUM INJ 40 MG/0.4 ML DISP.SYRIN SUBCUT SCH (10:21)
--- NOTE | 2018-07-23 15:14 | PDOC PROGRESS REPORT ---
Subjective Subjective:: Patient seen resting in bed. He complains of back and headache. His MRI of lumbar spine revealed high degree spinal stenosis. Neurosurgeon at [facility] in [place] consulted and 0 we will follow the patient as outpatient. Reason For Visit: ACUTE ISCHEMIC STROKE Physical Exam Vital Signs: Temp Pulse Resp BP Pulse Ox 97.4 F 64 16 148/69 H 96 07/23/18 12:14 07/23/18 12:14 07/23/18 12:14 07/23/18 12:14 07/23/18 12:14 Intake & Output 07/22/18 07/23/18 07/24/18 06:59 06:59 06:59 Intake Total 0 350 Output Total 0 Balance 0 350 Weight 139.4 kg 139.5 kg General appearance: PRESENT: no acute distress Eye exam: PRESENT: conjunctiva pink Neck exam: PRESENT: carotid bruit Respiratory exam: PRESENT: clear to auscultation vivek. ABSENT: rales, rhonchi, wheezes GI/Abdominal exam: PRESENT: normal bowel sounds, soft, other - Obese abdomen. ABSENT: distended, guarding, mass, organolmegaly, rebound, tenderness Neurological exam: PRESENT: alert, awake Results Laboratory Results: 07/22/18 04:49 07/22/18 04:49 07/21/18 07/21/18 16:50 16:50 Creatine Kinase 35 L CK-MB (CK-2) 0.35 Troponin I < 0.012 Impressions: Chest X-Ray 07/21/18 16:49 IMPRESSION: NO ACUTE RADIOGRAPHIC FINDING IN THE CHEST. Carotid Doppler Study 07/21/18 18:28 IMPRESSION: NO HEMODYNAMICALLY SIGNIFICANT STENOSIS. Chest CT 07/22/18 00:00 IMPRESSION: 1.7 cm nodule left lateral costophrenic sulcus. Patient does have a history prostate malignancy in the past. Consider outpatient follow-up PET-CT for further evaluation Lumbar Spine MRI 07/22/18 00:00 IMPRESSION: High-grade central canal stenosis at L4-5 Assessment & Plan - Diagnosis (1) Acute ischemic left MCA stroke Is this a current diagnosis for this admission?: Yes Plan: Patient is out of the therapeutic window and he is not a candidate for TPA administration. Patient has been started on high-dose aspirin and high intensity statin namely Lipitor 80 mg p.o. nightly Physical and occupational therapy consulted Speech evaluation is consulted. (2) Type 2 diabetes mellitus Is this a current diagnosis for this admission?: Yes Plan: His diabetes is well controlled with hemoglobin A1c of 6.6. (3) Hyperlipidemia Qualifiers: Hyperlipidemia type: unspecified Qualified Code(s): E78.5 - Hyperlipidemia, unspecified Is this a current diagnosis for this admission?: Yes Plan: Continue statin (4) Hypertension Is this a current diagnosis for this admission?: Yes Plan: Monitor his blood pressure and allow permissive hypertension (5) Morbid obesity with BMI of 45.0-49.9, adult Is this a current diagnosis for this admission?: Yes Plan: I will advise lifestyle modification. (6) Peripheral arterial disease Is this a current diagnosis for this admission?: Yes Plan: Outpatient follow-up with his primary care physician. (7) History of prostate cancer Is this a current diagnosis for this admission?: Yes Plan: Follow-up with his primary oncologist. (8) Bilateral leg weakness Is this a current diagnosis for this admission?: Yes Plan: Patient has ongoing both lower extremity weakness which has been going for more than a year and has also associated urinary and bowel incontinence. MRI of the lumbar spine requested to rule out any underlying epidural mass or lesion. (9) High-grade spinal stenosis Is this a current diagnosis for this admission?: Yes Plan: Patient is going to be followed by neurosurgeon as outpatient.
[2018-07-23] MEDS: ATORVASTATIN CALCIUM 80 MG TABLET PO SCH (22:09)
[2018-07-23] MEDS: INSULIN LISPRO 100 UNIT/ML 3 ML VIAL SUBCUT PRN (22:09)
[2018-07-23] MEDS: GABAPENTIN 300 MG CAPSULE PO SCH (22:09)
[2018-07-24] MEDS: LANSOPRAZOLE 30 MG TAB.RAP.DR PO SCH (06:03)
[2018-07-24] MEDS: CITALOPRAM HYDROBROMIDE 20 MG TABLET PO SCH (10:24)
[2018-07-24] MEDS: CHOLECALCIFEROL (D3) 1,000 UNIT TABLET PO SCH (10:25)
[2018-07-24] MEDS: ENOXAPARIN SODIUM INJ 40 MG/0.4 ML DISP.SYRIN SUBCUT SCH (10:29)
[2018-07-24] MEDS: HUM INSULIN NPH/REG INSULIN HM 100 UNIT/1 ML 3 ML SUBCUT SCH (10:29)
[2018-07-24] MEDS: ASPIRIN 325 MG TABLET PO SCH (10:29)
--- NOTE | 2018-07-24 11:03 | PDOC DISCHARGE SUMMARY ---
General - Admit/Disc Date/PCP Admission Date/Primary Care Provider: 07/21/18 18:12 Allyson MILLER Discharge Date: 07/24/18 - Discharge Diagnosis (1) Acute ischemic left MCA stroke Is this a current diagnosis for this admission?: Yes (2) Type 2 diabetes mellitus Is this a current diagnosis for this admission?: Yes (3) Hyperlipidemia Is this a current diagnosis for this admission?: Yes (4) Hypertension Is this a current diagnosis for this admission?: Yes (5) Morbid obesity with BMI of 45.0-49.9, adult Is this a current diagnosis for this admission?: Yes (6) Peripheral arterial disease Is this a current diagnosis for this admission?: Yes (7) History of prostate cancer Is this a current diagnosis for this admission?: Yes (8) Bilateral leg weakness Is this a current diagnosis for this admission?: Yes (9) High-grade spinal stenosis Is this a current diagnosis for this admission?: Yes - Additional Information Resuscitation Status: Full Code Home Medications: Cholecalciferol (Vitamin D3) [Vitamin D3 1000 Unit Tablet] 1,000 unit PO DAILY 07/21/18 Citalopram Hydrobromide [Celexa 40 mg Tablet] 40 mg PO DAILY 07/21/18 Gabapentin [Neurontin 300 mg Capsule] 300 mg PO QHS 07/21/18 Hum Insulin NPH/Reg Insulin Hm [Novolin 70-30 100 Unit/ml Vial] 30 units SQ Q12 07/21/18 Metformin HCl [Glucophage 500 mg Tablet] 750 mg PO BID 07/21/18 Multivit-Min/FA/Lycopen/Lutein [Men 50 Plus Multivitamin Tab] 1 tab PO DAILY 07/21/18 Pravastatin Sodium [Pravachol] 10 mg PO QHS 07/21/18 Vitamin B Complex 1 tab PO DAILY 07/21/18 History of Present Illness History of Present Illness: ELIJAH SINGH is a very pleasant but unfortunate 68 year old male past medical history of peripheral arterial disease, morbid obesity, diabetes mellitus, hypertension, history of prostate CA and generalized osteoarthritis referred from his primary care physician office for stroke. It is not able to give any meaningful history brief history is obtained from ER attending note and from his . This morning patient visited his primary care physician office of Dr. Hernandez for confusion and slurred speech. He has MRI and it was reported as acute ischemic stroke in the territory of left MCA. Of note patient has had confusion and weakness for the last 1 year. Per his who is in the room report is that patient is not able to walk and he only briefly stand to transfer him to scooter. He is also incontinent of stool and urine. Further detailed history and review of systems unobtainable. Hospital Course Hospital Course: Mr. Singh is a 68 years old male patient who was admitted yesterday after he was found to have acute left MCA ischemic stroke. Patient has past medical history of hypertension hyperlipidemia, diabetes mellitus, peripheral arterial disease morbid obesity and history of prostate CA status post radiation treatment. Patient has also underlying ongoing bilateral leg weakness and is not able to walk and associated incontinence of bowel and urine. He has bilateral carotid Doppler reported as no hemodynamically significant stenosis. His CT chest without contrast reported as 1.7 cm left lateral costophrenic sulcus nodule. Since patient has history of prostate CA further evaluation with outpatient follow-up PET/CT recommended by radiologist Dr. Infante. This morning I seen patient resting in bed he is awake alert and reports feeling better. MRI of the lumbar spine has been reported as high-grade lumbar spinal stenosis at L4-L5. I discussed the MRI finding with neurosurgeon at [facility]. Since patient has had the bilateral leg weakness for more than 1 year's is not an emergency situation so the neurosurgeon recommended outpatient follow-up with him at [facility] spinal surgery in [place]. I provided the contact address to the patient's . This morning I seen patient propped up in bed he is awake alert and oriented. Patient is stable enough to be discharged home. I will send him with aspirin and high intensity Lipitor. Physical Exam Vital Signs: Temp Pulse Resp BP Pulse Ox 97.5 F 61 18 154/80 H 98 07/24/18 07:13 07/24/18 08:00 07/24/18 08:00 07/24/18 08:00 07/24/18 08:00 Intake & Output 07/23/18 07/24/18 07/25/18 06:59 06:59 06:59 Intake Total 350 Balance 350 Weight 139.5 kg 138.2 kg General appearance: PRESENT: no acute distress Head exam: PRESENT: atraumatic Eye exam: PRESENT: conjunctiva pink Mouth exam: PRESENT: moist Neck exam: ABSENT: carotid bruit, JVD, lymphadenopathy, thyromegaly Respiratory exam: PRESENT: clear to auscultation vivek. ABSENT: rales, rhonchi, wheezes Cardiovascular exam: PRESENT: RRR. ABSENT: diastolic murmur, rubs, systolic murmur GI/Abdominal exam: PRESENT: normal bowel sounds, soft. ABSENT: distended, guarding, mass, organolmegaly, rebound, tenderness Neurological exam: PRESENT: alert, awake, oriented to time, oriented to situation Results Laboratory Results: 07/22/18 04:49 07/22/18 04:49 07/21/18 07/21/18 16:50 16:50 Creatine Kinase 35 L CK-MB (CK-2) 0.35 Troponin I < 0.012 Impressions: Chest X-Ray 07/21/18 16:49 IMPRESSION: NO ACUTE RADIOGRAPHIC FINDING IN THE CHEST. Carotid Doppler Study 07/21/18 18:28 IMPRESSION: NO HEMODYNAMICALLY SIGNIFICANT STENOSIS. Chest CT 07/22/18 00:00 IMPRESSION: 1.7 cm nodule left lateral costophrenic sulcus. Patient does have a history prostate malignancy in the past. Consider outpatient follow-up PET-CT for further evaluation Lumbar Spine MRI 07/22/18 00:00 IMPRESSION: High-grade central canal stenosis at L4-5 Qualifiers - * PATIENT BEING DISCHARGED WITH ANY OF THE FOLLOWING DIAGNOSIS: No
[2018-07-24 12:34] VITALS: BP 125/64
== END 2018-07-24 13:38 | disposition home or self-care (01) | DRG 65 ==
LOC: ER 16:39 → OBSVTOIN 18:12 → EH 18:12 → 3S 19:09
PROVIDERS: ADMIT Internal Medicine; ATTEND Internal Medicine
DX: I63.521 Cerebral infarction due to unspecified occlusion or stenosis of right anterior cerebral artery (principal); Z68.42 Body mass index [BMI] 45.0-49.9, adult; E78.5 Hyperlipidemia, unspecified; E66.01 Morbid (severe) obesity due to excess calories; E11.51 Type 2 diabetes mellitus with diabetic peripheral angiopathy without gangrene; I10 Essential (primary) hypertension; M19.90 Unspecified osteoarthritis, unspecified site; M48.061 Spinal stenosis, lumbar region without neurogenic claudication; M62.81 Muscle weakness (generalized); N39.498 Other specified urinary incontinence; Z85.46 Personal history of malignant neoplasm of prostate; Z92.3 Personal history of irradiation; Z90.49 Acquired absence of other specified parts of digestive tract; Z82.3 Family history of stroke
CPT/HCPCS: 36415; 70553; 71045; 71250; 72158; 80053; 80061; 81001; 82550; 82553; 82565; 82962; 83036; 84484; 85025; 85610; 85730; 93005; 93010; 93880; 99285; A9576; G8978-GP; G8979-GP; G8987-GO; G8988-GO; G9162-GN; G9163-GN; G9164-GN; J1650; J1815; J3490

== ENCOUNTER → 2018-07-21 | Outpatient (CLI) | payer MEDICARE, BC ==
--- NOTE | 2018-07-21 16:49 | RADIOLOGY REPORT (SQ) ---
EXAM DESCRIPTION: MRI HEAD COMBO COMPLETED DATE/TIME: 07/21/2018 4:33 pm REASON FOR STUDY: MENTAL STATUS CHANGE/WEAKNESS R41.82 ALTERED MENTAL STATUS, UNSPECIFIED R26.9 UN SPECIFIED ABNORMALITIES OF GAIT AND MOBILITY COMPARISON: None. TECHNIQUE: Multiplanar imaging includes noncontrasted T1, T2, FLAIR, Diffusion with ADC map and post gadolinium contrast T1 sequences. Images stored on PACS. CONTRAST TYPE AND DOSE: 20 mL Dotarem RENAL FUNCTION: GFR > 60. LIMITATIONS: None. FINDINGS: ANATOMY: No anomalies. Normal vascular flow voids. Pituitary fossa normal. CSF SPACES: Atrophy-induced prominence of CSF spaces and ventricles. CEREBRUM: High-signal intensity lesions scattered throughout the white matter on FLAIR imaging with d istribution suggesting chronic micro-vascular ischemic change. No evidence of hemorrhage, mass, extra axial fluid collection or acute ischemic change. No enhancing lesions. POSTERIOR FOSSA: No signal alteration. No hemorrhage. No edema, masses, or mass effect. Internal brandie tory canals, cerebello-pontine angles, mastoids normal. No enhancing lesions. ORBITS: No masses. Globes normal. PARANASAL SINUSES: No fluid levels. Mucosa normal. DIFFUSION: There is a small focal area of restricted diffusion in the posterior left parietal lobe wh ite matter adjacent to the atrium of the left lateral ventricle. OTHER: No other significant finding. IMPRESSION: ATROPHY AND CHRONIC MICRO-VASCULAR ISCHEMIC CHANGES. SMALL FOCAL AREA OF RESTRICTED DIF FUSION IN THE WHITE MATTER OF THE POSTERIOR LEFT PARIETAL LOBE CONSISTENT WITH A SMALL ACUTE INFARCT. EVIDENCE OF ACUTE STROKE: YES. LEFT MCA. COMMENT: Pertinent findings on the imaging study reported as a CRITICAL RESULT to MARCUS Jay by the MRI staff at16:30 on 07/21/2018. The patient will be sent to the emergency room for further evaluation. Category of Critical Result: Acute cerebral infarct. TECHNICAL DOCUMENTATION: JOB ID: [id number] [employer]- All Rights Reserved Reading location - IP/workstation name: [email or web address]
== END ==
LOC: RAD 14:55
PROVIDERS: ATTEND Family Medicine
DX: R41.82 Altered mental status, unspecified (principal); R26.9 Unspecified abnormalities of gait and mobility; I63.512 Cerebral infarction due to unspecified occlusion or stenosis of left middle cerebral artery; F03.90 Unspecified dementia, unspecified severity, without behavioral disturbance, psychotic disturbance, mood disturbance, and anxiety; R63.4 Abnormal weight loss
CPT/HCPCS: 82565; 70553; A9576